=== PATIENT | female | born 1985 | race African-American/Black ===

== ENCOUNTER 2017-06-06 08:48 | Outpatient (CLI) | payer OTHER | END 2017-06-06 08:49 | disposition home or self-care (01) | LOC: BICULT 08:48 | PROVIDERS: ATTEND Family Medicine | DX: N93.9 Abnormal uterine and vaginal bleeding, unspecified (principal); D25.9 Leiomyoma of uterus, unspecified; N83.8 Other noninflammatory disorders of ovary, fallopian tube and broad ligament; R93.8 Abnormal findings on diagnostic imaging of other specified body structures | CPT/HCPCS: 76856 ==

== ENCOUNTER 2018-02-28 21:50 | Emergency (ER) | payer OTHER, SELFPAY ==
[2018-02-28] MEDS ORDERED: HYDROcodone/Acetaminophen 10/325 mg Tablet ONE (22:05)
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
== END 2018-02-28 22:50 | disposition home or self-care (01) ==
LOC: ERS 21:50
DX: S60.222A Contusion of left hand, initial encounter (principal); V43.92XA Unspecified car occupant injured in collision with other type car in traffic accident, initial encounter

== ENCOUNTER 2018-07-24 20:35 | Emergency (ER) | payer SELFPAY | END 2018-07-24 22:41 | disposition home or self-care (01) | LOC: ERS 20:35 | DX: B34.9 Viral infection, unspecified (principal) | CPT/HCPCS: 87804; 99283 ==